=== PATIENT | male | born 1980 | race Caucasian/White ===

== ENCOUNTER 2019-08-25 10:22 | Day surgery (SDC) | payer OTHER, MEDICAID, SELFPAY ==
[2019-08-25] VITALS (9 sets, daily range): BP systolic 112–151; BP diastolic 70–90; PULSE 55–70; RESP 16–20; TEMP 36.6–37.5; O2SAT 4–99; BMI 41.0
[2019-08-25 11:30] LABS: Bedside Glucose 144 mg/dL (70-110)
--- NOTE | 2019-08-25 12:00 | RAD_ITS ---
STUDY: X-RAY - LEFT TIBIA AND FIBULA REASON FOR EXAM: Male, 39 years old. Ankle fracture. TECHNIQUE: 21 intraoperative view(s) of the tibia and fibula were obtained. 180 seconds of fluoroscopy were utilized. 6.73 mGys. COMPARISON: None. FINDINGS: A images demonstrate placement of 2 screws through the medial malleolus transfixing the fracture. 2 screws are also placed centrally through the base of the tibia thought to retain a posterior malleolar fracture. Please refer to the operative report for further details RAD/Tibia & Fibula 2 Views IMPRESSION: Internal fixation of distal tibial fractures in the OR. Electronically Signed: Carl Angelo DO at 16:17 EDT Tel [phone], Service support ,
--- NOTE | 2019-08-25 15:34 | RAD_ITS ---
STUDY: X-RAY - LEFT ANKLE REASON FOR EXAM: Male, 39 years old. Postop. TECHNIQUE: 3 view(s) of the ankle. COMPARISON: Intraoperative images, August 25, 2019. FINDINGS: There are 2 screws transfixing medial malleolar fracture remains normal alignment. There are 2 screws transfixing the posterior malleolar fracture were also lies in normal alignment. Normal distal fibula. Normal tibiotalar articulation and ankle mortise. Normal visualized talus and calcaneus. The visualized subtalar, talonavicular, calcaneocuboid and tarsal articulations are normal. There is mild soft tissue swelling with skin clips over the lateral ankle. RAD/Ankle min 3 Views IMPRESSION: Status post internal fixation of distal tibial fractures. Electronically Signed: Carl Angelo DO at 16:29 EDT Tel [phone], Service support ,
--- NOTE | 2019-08-25 15:38 | DCINST_ITS ---
Discharge Diet: Light diet - advance as tolerated, Carb Control Diet Discharge Activity: May Not Drive, May Not Shower, Use Walker, Use Crutches Weight Bearing Status: No weight bearing Keep extremity elevated above heart level: Left Leg Call your doctor if your incision/area has: Increased Pain/ Swelling Call your doctor if you observe: Fever of 101 or Higher, Coldness, Increased Pain, Change in Color, Shortness of breath, Chest pain, Calf discomfort, Uncontrolled pain Cleanse incision/area with: Keep Dressing Clean & Dry Additional Dressing/Incision Instructions:: Keep dressing clean, dry, and intact. Do not get dressing wet. Protect dressing when bathing with cast protector or plastic bag and tape. Elevate left leg above level of heart as much as possible for the next 7 days. Ice behind left knee 20 minutes on, 20 minutes off every hour while awake for the next 7 days. Take medications as prescribed. Can begin pain medications the evening of August 25. Begin aspirin August 26. No walking or standing on the left foot. Use crutches/walker black/knee scooter for assistance. Allergies/Adverse Reactions: Allergies No Known Allergies Allergy (Verified 08/25/19 11:03) Medications to take at Discharge Ibuprofen 200 mg PO PRN PRN 08/23/19 Metformin HCl 500 mg PO BID 08/23/19 Oxycodone HCl/Acetaminophen [Percocet 5/325] 1 tab PO Q6H PRN PRN 08/23/19 Primary Care Physician: Vincent Khan MD [Primary Care Provider] - Test Results: Test results from this visit will be discussed in further detail at your follow- up appointment, if applicable. Please Follow Up With: Yefri Mccord DPM
--- NOTE | 2019-08-25 15:43 | PCM.OPRPT ---
Problem List (1) Displaced pilon fracture of left tibia Status: Acute Qualifiers: Encounter type: initial encounter Fracture type: closed Qualified Code(s): S82.872A - Displaced pilon fracture of left tibia, initial encounter for closed fracture Report of Operation Date of Procedure: 08/25/19 Pre-Operative Diagnosis: 1.) left tibial pilon fracture, closed, dislocated. 2.) left ankle joint dislocation Post-Operative Diagnosis: Same as preoperative Surgery/Procedure Performed:: 1. Left tibia peel on fracture open reduction with internal fixation. 2.) left ankle joint arthroscopic debridement. 3.) left ankle joint reduction Description of Surgical Findings:: Consistent with diagnosis. Reduction of deformity achieved and held with internal fixation. Arthroscopic debridement was employed to decrease the amount of synovitic tissue and hemorrhagic tissue contained within the ankle joint. 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 #2 Benji 4-0 x 46 mmpartially-threaded screw. #3 Benji 4-0x 50 mm partially-threaded screw. #4 [place] 4-0 x 55 mm partially-threaded screw. #5 size 0 Vicryl. #6 size 2-0 Vicryl. #7 size 3-0 nylon. #8 skin quinn Injectables: None Complications: None Condition: Stable Indications: Mr. Young is a 39-year-old male with a past medical history of diabetes mellitus type 2 and hypertension who suffered a slip and fall while at work. Patient presented to [facility] where x-rays and CT scan was performed. At that time a pilon fracture was noted of his left ankle with displacement. Patient was then sent to my office for follow up and first saw me on August 17, 2019. At that time I reviewed the x-rays and the CT scan with the patient and discussed his activities of daily living and goals. After multiple discussions were had with the patient it was determined at that time that surgical intervention to reduce the deformity and to hold the deformity in the correct position with internal fixation would greatly benefit the patient help and return to activities of daily living. Operative Report: Before the patient was brought to the operating room, all the risks, benefits, possible outcomes, possible complications of the procedure were discussed with the patient. All the patient's questions were answered to his satisfaction and all of his concerns were addressed. No guarantees were made as to the outcome of the procedure. Patient understood all aspects of the procedure and consent was then signed by the patient. Before the patient was brought to the operating room the anesthesiologist administered a popliteal/saphenous block to the left lower extremity. The patient was then brought to the operating room placed on the operating table in the supine position. After a timeout, under general anesthesia, well-padded pneumatic thigh tourniquet was placed to level of the left thigh. Next the left thigh and leg were then placed in the leg baldwin to prepare for the arthroscopic debridement. Adequate padding was added to this leg baldwin to ensure proper support. The left foot ankle and leg were then scrubbed,prepped and draped in the usual sterile manner. Elevation of the left lower extremity was followed by exanguination via Esmarch and inflation of the pneumatic thigh tourniquet to 300 mmHg. Attention was then directed to the anterior aspect of the left ankle. At this time the ankle joint line along with the tibialis anterior tendon, medial malleolus, and lateral malleolus were palpated and marked. Next a #15 blade was used to perform a stab incision just medial to the tibialis anterior tendon at the level of the ankle joint. At this time 60 mL of normal sterile saline was injected into the ankle joint, with the foot dorsiflexing and everting thus ensuring the needle was in the ankle joint. At this time blunt dissection was continued down deep to the level of the capsule through this skin incision. Next the trocar inserted into the cannula was placed into the surgical site and was used to banks the ankle joint capsule. Immediate backflow was noted. The trocar was then removed from the cannula and the arthroscope was placed into the cannula. At this time visual inspection was then performed of the ankle joint. Chronic synovitis along with hemorrhagic synovitis was noted. Next transillumination was performed to determine the level of the anterior lateral portal. A #15 blade was used to perform a stab incision at the level of the ankle joint for the anterior lateral portal in an area void of neurovascular structures. Blunt dissection was continued down deep to level the ankle joint capsule which was penetrated through bluntly. Next the arthroscopic shaver was placed into the anterior lateral portal site. Triangulation was then performed and debridement of the chronic and hemorrhagic synovitic tissue was performed at this time using the shaver. Once adequate debridement was performed visual inspection of the ankle joint was performed once again. The medial and lateral gutters were deemed clear along with the talar dome. No evidence of osteochondral defects were noted. The syndesmosis was intact. The fractures of the tibia were noted at this time. The arthroscopic shaver was then used to remove fibrous tissue from the fracture site. At this time the arthroscope and the shaver were then removed from their portals. The left leg and thigh were then removed from the leg and thigh baldwin. Attention was then directed to the medial malleolus of left lower extremity. At this time radiographic evaluation was used to determine the level of the fracture site. Once determined a linear longitudinal incision was made starting on the medial aspect of the central portion of the medial malleolus extending distally to the distal tip of the medial malleolus. This incision was deepened utilizing sharp and blunt dissection. Care was taken to retract all vital neural and vascular structures. All bleeders were cauterized and ligated as necessary. At this time a linear periosteal incision was made in line with the original skin incision. The periosteal capsular structures were then reflected anteriorly and posteriorly thus exposing the medial malleolus and the fracture fragments at the operative site. The medial malleolus fracture was then reduced. At this time live radiographic evaluation was used to insert 2 K wires from the inferior aspect of the medial malleolus aimed to the mid portion of the tibia. Multiple radiographic views were employed to make sure that this K wire well-contained within the tibia and were as parallel to each other as possible. Once adequate positioning of the K wires was had, both his K wires were then drilled. At this time to Benji 4-0 cannulated screws were replaced all the K wires and inserted in standard AO fixation. Of note during insertion of the screws with adequate compression of the fracture fragments. Furthermore no shifting of the fragments occurred during insertion of the screws. Once the screws were fully inserted the K wires were then removed in their entirety. Radiographic evaluation was then performed and the screws are noted to hold the medial malleolar fracture components back into the corrected anatomic position. Furthermore the ankle joint mortise was noted to be congruent at this time. Attention was then directed to the anterior lateral portion of the distal tibia at the level of the ankle joint. Live radiographic evaluation was used to determine the level of screw insertions that was void of any vital neurovascular structures. These areas were then marked on the skin. At this time a stab incision was made on the posterior lateral aspect of the left ankle just lateral to the midportion of the Achilles tendon. This was to be used for the bone reduction clamp. At this time with one arm of the bone reduction clamp placed on the anterior aspect of the left distal tibia live radiographic evaluation was used to place the posterior portion of the posterior malleolus. When adequate positioning of the bone clamp was had and confirmed on radiograph, the fracture fragments of the anterior and posterior tibia were then reduced. Once fully reduced the clamp was then held in position. Radiographic evaluation was then performed and it was noted to hold the anterior and posterior fracture fragments of the tibia in the corrected reduced position At this time 2 K wires were driven from anterior to posterior through the anterior distal tibia and into the posterior malleolus. Once adequate positioning of this K wire was then performed a stab incision was made at the level of these K wires. Blunt dissection was continued down deep to the level of the bone where the periosteum was bluntly dissected off. At this time these K wires were then measured. A [place] 4-0 by 42 mm was placed in the proximal K wire and the [place] 4-0 46 mm screw was placed in the distal K wire. Both of the screws were placed in standard AO fixation. Of note during insertion of the screws with adequate compression of the fractured fragments Furthermore no shifting in the fragments occurred during insertion of the screws. Once the screws were fully inserted the bone reduction clamp along with the K wires were then removed. At this time radiographic evaluation was then performed and the screws noted to hold the fracture fragments in the correct the reduced position. All of the screws were neither too long or too short. The ankle joint mortise was noted to be intact and no further step-off was noted upon radiographic evaluation. Each surgical site was then irrigated copious amounts of normal sterile saline. The medial surgical site periosteal and capsular structures were reapproximated and coapted utilizing 0 Vicryl. The subtcutaneous tissues were approximated coapted with 2-0 Vicryl. The skin was approximated coapted utilizing skin quinn. At this time the sub-cutaneous tissues of the remaining surgical sites were approximated and coapted with 2-0 Vicryl. The skin of the remaining surgical sites were reapproximated and coapted utilizing 3-0 nylon in a simple interrupted and horizontal mattress fashion. Each surgical site was then dressed with Betadine soaked gauze and a dry sterile dressings using a 4 x 4 gauze, ABD pads, wrapped with Kerlix. At this time the pneumatic thigh tourniquet was then released and a prompt hyperemic response was noted to the entirety of the left lower extremity. Next cast padding was wrapped in the metatarsal heads extending proximally to the level just distal to the tibial tuberosity. A posterior splint was fashioned to left lower extremity with the sugar tong addition from medial to lateral. These posterior splint were adhered to the left lower extremity utilizing Kosta bandages. The foot and ankle were held in the neutral position while the posterior splint dried. The patient tolerated anesthesia procedure well was transferred to the PACU with vital signs stable neurovascular status intact to left lower extremity. After pre-postoperative monitoring patient will be discharged home with written and oral instructions for wound care and follow-up.
== END 2019-08-25 17:27 | disposition home or self-care (01) ==
LOC: SDC 10:23 → AC 10:26
PROVIDERS: Referring Provider Podiatrist Foot & Ankle Surgery; Visit Provider Podiatrist Foot & Ankle Surgery
PROC: (CPT 29897; principal; 2019-08-25 11:40)
DX: S82.872A Displaced pilon fracture of left tibia, initial encounter for closed fracture (principal); S93.05XA Dislocation of left ankle joint, initial encounter; M65.872 Other synovitis and tenosynovitis, left ankle and foot; W11.XXXA Fall on and from ladder, initial encounter; Y93.9 Activity, unspecified; Y92.9 Unspecified place or not applicable; E11.9 Type 2 diabetes mellitus without complications; Z79.84 Long term (current) use of oral hypoglycemic drugs; F17.210 Nicotine dependence, cigarettes, uncomplicated
CPT/HCPCS: 27827; 29897; 73590; 73610; 76000; 82962; C1713; J7120; J2405

== ENCOUNTER → 2023-02-25 | Outpatient (CLI) | payer OTHER, SELFPAY ==
[2023-02-25 11:57] LABS: Hemoglobin A1c 6.7 % (3.8-5.6)
== END | disposition home or self-care (01) ==
LOC: PAVLAB 11:11
PROVIDERS: PCP Family Medicine; Referring Provider Family Medicine; Visit Provider Family Medicine
DX: E11.65 Type 2 diabetes mellitus with hyperglycemia (principal); E03.9 Hypothyroidism, unspecified
CPT/HCPCS: 36415; 83036; 84443

== ENCOUNTER → 2023-06-09 | Outpatient (CLI) | payer OTHER, SELFPAY ==
[2023-06-09 10:37] LABS: ALB/GLOB Ratio 0.8 RATIO (0.9-2.4); AST(SGOT) 17 U/L (15-37); Alanine Aminotransfer ALT/SGPT 27 U/L (16-61); Albumin, Serum 3.7 g/dL (3.2-5.0); Alkaline Phosphatase 76 U/L (45-117); Anion Gap 4 (5-15); BUN 9 mg/dL (7-18); BUN/Creat Ratio 9.7 RATIO (10-20); Calcium,Total 9.3 mg/dL (8.5-10.1); Chloride 106 mmol/L (98-107); Cholesterol 127 mg/dL (200); Creatinine, Serum 0.93 mg/dL (0.70-1.30); EST Glomerular Filtration Rate 93 mL/min (>60); Est Glom Filt Rate - Afr Amer 113 mL/min (>60); Globulin 4.5 g/dL (2.2-4.2); Glucose 188 mg/dL (74-106); High Density Lipoprotein 31 mg/dL; Potassium 4.3 mmol/L (3.5-5.1); Protein, Total 8.2 g/dL (6.4-8.2); Sodium Level 137 mmol/L (136-145); Triglycerides 143 mg/dL; Very Low Density Lipoprotein 29 mg/dL (5-40)
[2023-06-09 10:40] LABS: Hemoglobin A1c 6.8 % (3.8-5.6)
== END | disposition home or self-care (01) ==
PROVIDERS: PCP Family Medicine; Referring Provider Family Medicine; Visit Provider Family Medicine
DX: E11.65 Type 2 diabetes mellitus with hyperglycemia (principal); E78.2 Mixed hyperlipidemia; E03.9 Hypothyroidism, unspecified
CPT/HCPCS: 36415; 80053; 80061; 83036; 84443